=== PATIENT | female | born 1950 | race Caucasian/White ===

== ENCOUNTER 2018-11-24 09:43 | Day surgery (SDC) | payer MEDICARE ==
[~2018-11-24] VITALS: Ht 162.6 cm; Wt 107.4 kg
[~2018-11-24 09:43] MED LIST: ABAT250V; AMOCLA500 PO; BUDE6HFA INH; Celebrex50 MG PO; Diovan320 MG PO; INSULANPEN; INSULANPEN SC; Keflex500 MG; NOVOLOG FL100 UNIT/1 SC; Novolog100 UNIT/2; Percocet 5-3251 EACH PO; VITAMIN D50000 UNIT PO
--- NOTE | 2018-11-24 10:57 | NUR ---
11/24/18 1057 Aram Marte N 1 IV ATTEMPT RIGHT FA. VEIN BLEW. PT TOW. 2ND IV IN RIGHT HAND, SUCCESSFUL.
[2018-11-24 11:24] LABS: Albumin, Blood 3.4 g/dL (3.4-5.0); Albumin/Globulin Ratio 0.9 (0.8-1.8); Bilirubin, Total 0.5 mg/dL (0.1-1.0); Bun/Creatinine Ratio 11.3 (12.0-20.0); Calcium, Blood 8.9 mg/dL (8.5-10.1); Creatinine, Blood 2.74 mg/dL (0.40-1.00); Globulin, Blood 3.8 g/dL (2.2-4.0); Potassium, Blood 5.8 mmol/L (3.5-5.5); Total Protein, Blood 7.2 g/dL (6.4-8.2)
--- NOTE | 2018-11-24 12:38 | NUR ---
11/24/18 1238 Yelena Holly 8.5ML NORMAL SALINE USED TO ELEVATE TRANSVERSE COLON POLYP
== END 2018-11-24 13:40 | disposition home or self-care (01) ==
LOC: ORSCSDS 09:43
PROVIDERS: Internal Medicine Gastroenterology
PROC: 0DBL8ZX Excision of Transverse Colon, Via Natural or Artificial Opening Endoscopic, Diagnostic (ICD-10-PCS; principal; 2018-11-24 11:30)
PROC: 0DBH8ZX Excision of Cecum, Via Natural or Artificial Opening Endoscopic, Diagnostic (ICD-10-PCS; principal; 2018-11-24 11:30)
PROC: 0DBK8ZX Excision of Ascending Colon, Via Natural or Artificial Opening Endoscopic, Diagnostic (ICD-10-PCS; principal; 2018-11-24 11:30)
PROC: 0DBE8ZX Excision of Large Intestine, Via Natural or Artificial Opening Endoscopic, Diagnostic (ICD-10-PCS; principal; 2018-11-24 11:30)
DX: K92.1 Melena (principal); D12.0 Benign neoplasm of cecum; D12.2 Benign neoplasm of ascending colon; D12.3 Benign neoplasm of transverse colon; K63.5 Polyp of colon; K64.1 Second degree hemorrhoids; K64.4 Residual hemorrhoidal skin tags; K57.30 Diverticulosis of large intestine without perforation or abscess without bleeding; I10 Essential (primary) hypertension; E11.9 Type 2 diabetes mellitus without complications; G47.33 Obstructive sleep apnea (adult) (pediatric); E11.22 Type 2 diabetes mellitus with diabetic chronic kidney disease; I12.9 Hypertensive chronic kidney disease with stage 1 through stage 4 chronic kidney disease, or unspecified chronic kidney disease; N18.4 Chronic kidney disease, stage 4 (severe); E11.40 Type 2 diabetes mellitus with diabetic neuropathy, unspecified; F17.210 Nicotine dependence, cigarettes, uncomplicated; Z79.899 Other long term (current) drug therapy; Z79.82 Long term (current) use of aspirin; E66.01 Morbid (severe) obesity due to excess calories; Z68.41 Body mass index [BMI] 40.0-44.9, adult
CPT/HCPCS: 80053; 82947; 88305; J0290; J1580; J2704; J7030

== ENCOUNTER 2019-04-30 11:31 | Inpatient (IN) | payer MEDICARE ==
[~2019-04-30] VITALS: Ht 162.6 cm; Wt 108.1 kg
[~2019-04-30 11:31] MED LIST changes: -Diovan320 MG PO; -INSULANPEN SC; -VITAMIN D50000 UNIT PO
[2019-04-30 12:41] LABS: BASOPHILS ABSOLUTE AUTO 0.02 K/mm3 (0.00-0.23); BASOPHILS PERCENT AUTO 0 % (0-2); EOSINOPHILS ABSOLUTE AUTO 0.05 K/mm3 (0.00-0.68); EOSINOPHILS PERCENT AUTO 1 % (0-6); Hematocrit 45.2 % (33.0-51.0); Hemoglobin 14.4 g/dL (11.5-16.0); IMMATURE GRAN ABSOLUTE AUTO 0.03 K/mm3 (0.00-0.10); IMMATURE GRAN PERCENT AUTO 0 % (0-1); LYMPHOCYTES ABSOLUTE AUTO 0.86 K/mm3 (0.84-5.20); LYMPHOCYTES PERCENT AUTO 11 % (21-46); MONOCYTES ABSOLUTE AUTO 0.34 K/mm3 (0.16-1.47); MONOCYTES PERCENT AUTO 4 % (4-13); Mean Corpuscular HGB 27.4 pg (26.0-34.0); Mean Corpuscular HGB Conc 31.9 g/dL (31.5-36.5); Mean Corpuscular Volume 86 fL (80-100); NEUTROPHILS ABSOLUTE AUTO 6.55 K/mm3 (1.96-9.15); NEUTROPHILS PERCENT AUTO 83 % (41-73); Platelet Count 235 K/mm3 (150-400); RDW Coefficient Variation 14.3 % (11.7-14.2); RDW Standard Deviation 44.8 fL (35.1-46.3); Red Blood Cell Count 5.26 M/mm3 (3.80-5.20); White Blood Cell Count 7.85 K/mm3 (4.00-11.30)
[2019-04-30 12:51] LABS: Albumin, Blood 3.2 g/dL (3.4-5.0); Albumin/Globulin Ratio 0.8 (0.8-1.8); Bilirubin, Total 0.3 mg/dL (0.1-1.0); Bun/Creatinine Ratio 15.1 (12.0-20.0); Calcium, Blood 8.5 mg/dL (8.5-10.1); Creatinine, Blood 3.25 mg/dL (0.40-1.00); Globulin, Blood 4.1 g/dL (2.2-4.0); Total Protein, Blood 7.3 g/dL (6.4-8.2); Troponin I 0.031 ng/mL (0.000-0.040)
[2019-04-30] MEDS ORDERED: PRED20 PO (13:30)
[2019-04-30] MEDS ORDERED: XANAX0.25 MG PO (13:30)
[2019-04-30] MEDS ORDERED: INSULANPEN SC (14:03)
[2019-04-30] MEDS ORDERED: Diovan320 MG PO (14:03)
[2019-04-30] MEDS ORDERED: FIASP 100100 UNIT/2 SC (14:05)
[2019-04-30] MEDS ORDERED: ERGO50000 PO (14:06)
[2019-04-30] MEDS ORDERED: LORA.5 PO (16:22)
[2019-04-30] MEDS ORDERED: Prednisone10 MG PO (17:14)
[2019-04-30] MEDS ORDERED: ASPI325 PO (17:59)
--- NOTE | 2019-04-30 18:41 | NUR ---
SHE HAS BEEN ADMITTED. CBG DOWN TO 212. LATE DINNER JUST ARRIVED. SHE IS A LITTLE ANXIOUS RIGHT NOW BUT HASN'T BEEN SINCE ARRIVAL TO THE FLOOR. SHE WAS ANXIOUS IN THE E.R. CONSULTATION WAS CALLED TO . NO WORD FROM HER YET.TELE NSR. NO COMPLAINTS.
--- NOTE | 2019-04-30 18:43 | NUR ---
Echocardiogram completed.
--- NOTE | 2019-05-01 01:46 | NUR ---
CALL PLACED TO HOSPITALIST AT 2400 RE: NEED FOR REPEAT TROPONIN, DR. DAY STATES OK TO COMPLETE 3RD TROPONIN AT 0500. INFORMED MD OF PT REPORTS OF CHEST TIGHTNESS. RECEIVED ORDER FOR NITRO PASTE.
--- NOTE | 2019-05-01 04:45 | NUR ---
SHIFT SUMMARY: LABETALOL PRN ADMINISTERD X 1 FOR BP. PT REPORTS OF INCREASING CHEST AND L SHOULDER PAIN IMPROVED WITH IV MORPHINE. CHEST TIGHTNESS IMPROVED WITH NITRO PASTE. NO DYSPNEA. PT WAS ABLE TO SUCCESSFULLY STRAIGHT CATH INDEPENDENTLY AT HS. PERITONEAL PORT ACCESS SITE WITH DRESSING C/D/I. WILL CONT TO MONITOR.
[2019-05-01 05:59] LABS: Albumin, Blood 2.8 g/dL (3.4-5.0); Albumin/Globulin Ratio 0.8 (0.8-1.8); Bilirubin, Total 0.3 mg/dL (0.1-1.0); Calcium, Blood 8.3 mg/dL (8.5-10.1); Creatinine, Blood 3.35 mg/dL (0.40-1.00); Globulin, Blood 3.4 g/dL (2.2-4.0); Potassium, Blood 4.9 mmol/L (3.5-5.5); Total Protein, Blood 6.2 g/dL (6.4-8.2)
[2019-05-01 06:02] LABS: Troponin I 7.35 ng/mL (0.000-0.040)
[2019-05-01 09:00] LABS: CHOL/HDL RATIO 5.4; Cholesterol 238 mg/dL (50-200); HDL Cholesterol 44 mg/dL (>39); LDL/HDL RATIO 3.7; Low Density Lipoprotein Chol 161 mg/dL (0-110); Triglycerides 167 mg/dL (30-160); Very Low Density Lipoprot Chol 33 mg/dL (6-32)
--- NOTE | 2019-05-01 11:08 | NUR ---
SHE LEFT FOR BILLING AND QUALITY TECHNICIAN FOR AN ANGIOGRAM AT 1030 BY W/C. SHE DID NOT HAVE CP THIS MORNING BUT C/O HEAD AND NECK PAIN. SHE DID NOT WANT TO TAKE TYLENOL OR MORPHINE FOR IT. SHE IS UP WITH 1 ASSIST TO HELP HER WITH THE IV POLE. SHE SELF-CATHED AT 0815 FOR 900 MLS HAZY ALCON URINE. NO SOB. SHE DID ALSO FEEL A LITTLE WEAK AND DIZZY ONCE THIS MORNING WHEN SHE STOOD UP. ROUNDED AND LATER ROUNDED AND CONSENTED PATIENT FOR A HEART CATHETERIZATION. WE NOW KNOW SHE WILL GO TO PCU 4 AFTER HER ANGIO SO BELONGINGS HAVE JUST BEEN MOVED THERE. HER "FAMILY" BROUGHT IN HER PHONE CORDUROY CUTTING SUPERVISOR. IT IS PLUGGED IN IN PCU.
--- NOTE | 2019-05-01 11:54 | NUR ---
REPORT GIVEN TO CARINA SALAZAR RN. ANABELLA IS IN THE ENGINE ROOM HELPER.
--- NOTE | 2019-05-01 12:30 | NUR ---
ASSUMED PATIENT CARE.
--- NOTE | 2019-05-01 17:15 | NUR ---
2 ML OF AIR REMOVED FROM TR BAND, NO NEW DRAINAGE NOTED. PATIENT DENIES ANY PAIN AT SURGICAL SITE. WCTM.
--- NOTE | 2019-05-01 17:53 | NUR ---
1 ML REAPPLIED TO TR BAND DUE TO NEW BLOOD DISCHARGE FROM SURGICAL WOUND.
--- NOTE | 2019-05-01 19:12 | NUR ---
PATIENT CARE RELINQUISHED.
--- NOTE | 2019-05-01 19:13 | NUR ---
PATIENT ARRIVED FROM TECHNICAL OPERATIONS MANAGER AROUND 1230 TODAY, R. WRIST TR BAND PRESENT WITH NO DISCHARGE AND 11 ML AIR. PATIENT ALERT AND ORIENTED, DID NOT COMPLAIN OF PAIN AT INCISION SITE UNTIL THIS PM, NEW BRUISING NOTED PROXIMAL TO TR BAND. INITIAL AIR REMOVAL STARTED THIS AFTERNOON, 2 ML REMOVED BUT STARTED BLEEDING SO 1 ML REPLACED. THIS PM AT HAND-OFF REMOVED ADDITIONAL 2ML WITH NO SIGNS OF NEW BLEEDING. VITAL SIGNS STABLE. SON AT BEDSIDE.
--- NOTE | 2019-05-01 19:16 | NUR ---
PATIENT RETURNED TO PCU FROM CARDIAC SERVER ADMINISTRATOR FOR RECOVERY AFTER STENT PLACEMENT. PT AWAKE , ALERT AND WATCHING TV WITH VISITOR. CYCLER SET UP PER DR BAIN'S ORDER WITH NO INITIAL DRAIN DUE TO RX WITH NO LAST FILL AND DRY IN THE DAYTIME. ID ALARM OFF SO AFTER SHORT PULL, THERAPY WENT STRAIGHT TO FILL#1. NO DISCOMFORT REPORTED. EXIT SITE CARE DEFERRED PER PATIENT REQUEST. DRESSING CLEAR / INTACT. PATIENT STATES SHE WILL CHANGE HER OWN DRESSING IN THE AM. PCU STAFF AWARE OF OVERNIGHT CCPD THERAPY IN PROGRESS.
--- NOTE | 2019-05-01 21:00 | NUR ---
Assumed Care Pt presents sitting in bed with son at bedside, watching superbowl. Phil, RN from [facility] in room setting PD up. Pt alert and oriented, VSS. Conversing appropriately. R Radial TR site with 10cc of air remaining in band at time of shift change. Offgoing RN at bedside with this RN, R radial access site visualized by both RN's. Site with dried blood to cuff, bruise superior to cuff, site soft. Distal extremeities pale, pulse palp, sensation intact. cap refill<3seconds. Pt denies pain. See shift assessment for detailed systems assessment. Will continue to monitor.
--- NOTE | 2019-05-01 22:30 | NUR ---
R RADIAL ACCESS SITE FULLY RECOVERED AT 2230.
[2019-05-02 04:39] LABS: Albumin, Blood 2.9 g/dL (3.4-5.0); Anion Gap 8 mmol/L (6-16); Blood Urea Nitrogen 49 mg/dL (8-24); Bun/Creatinine Ratio 14.6 (12.0-20.0); CO2, Blood 20 mmol/L (21-32); Calcium, Blood 8.6 mg/dL (8.5-10.1); Chloride, Blood 108 mmol/L (98-108); Creatinine, Blood 3.35 mg/dL (0.40-1.00); Glomerular Filtration Rate 15 (60-); Glucose, Blood 203 mg/dL (70-99); Phosphorus, Blood 5.3 mg/dL (2.5-4.9); Potassium, Blood 5.1 mmol/L (3.5-5.5); Sodium, Blood 136 mmol/L (136-145)
--- NOTE | 2019-05-02 05:01 | NUR ---
Shift Summary Pt had PD this shift, self straight caths, and R Radial site recovered and site is dressed with tegaderm and arm board. Pt with VSS. Sleeping on and off throughout shift. Able to make needs known, remains alert and oriented but anxious and expresses frustration "I will leave this morning no matter what". Pt's concerns listened to and therapeutic communication expressed to pt. Pt is very involved in care. No acute concerns overnight. No events on tele. Will continue to monitor.
--- NOTE | 2019-05-02 07:27 | NUR ---
ASSUMED CARE: PT SITTING UP AT SIDE OF BED. STATES SHE WAS A LITTLE DIZZY AND NAUSEATED, DID NOT SLEEP WELL LAST NIGHT. WANTS TO BE DC'D TODAY. WILL DISCUSS WITH DR PRADO. RADIAL SITE WITH BRUISE NOTED ABOVE WHERE BAND WAS. NO FURTHER SIGNS OF HEMATOMA OR BLEEDING.
[2019-05-02] MEDS ORDERED: ASPI81CH PO (10:22)
[2019-05-02] MEDS ORDERED: ACET325 PO (10:26)
[2019-05-02] MEDS ORDERED: ATOR80 PO (10:27)
[2019-05-02] MEDS ORDERED: CLOP75 PO (10:29)
[2019-05-02] MEDS ORDERED: METO25 PO (10:31)
--- NOTE | 2019-05-02 11:53 | NUR ---
PT DC'D PER ORDERS. IV DC'D WNL. DISCUSSED NEED TO TAKE PLAVIX AND ASPIRIN AND TO NOT STOP UNLESS MD ADVISES. WARNED PT ABOUT BLEEDING RISK AND TO SEEK MEDICAL ASSIST IF SHE HITS HEAD OR NOTICES INCREASED BRUISING. PT DENIED FURTHER QUESTIONS OR CONCERNS. ESCORTED OUT VIA WHEEL CHAIR BY RN.
--- NOTE | 2019-05-02 14:37 | NUR ---
DIALYSIS-PD PT DISCONNECTED HERSELF. SITE CLEAR. SOLUTION CLEAR. NO COMPLAINTS. ID 1 ML ( LAST FILL 0 ML), 333 ML UF. PT BEING DISCHARGED TODAY.
== END 2019-05-02 11:36 | disposition home or self-care (01) | DRG 246 ==
LOC: ER 11:31 → MEDS 11:32 → PCU 05-01 12:15 → MEDS 05-01 12:16 → PCU 05-01 12:25
PROVIDERS: Emergency Medicine; Internal Medicine; Nurse Practitioner Acute Care; ADMIT Internal Medicine
PROC: 4A023N7 Measurement of Cardiac Sampling and Pressure, Left Heart, Percutaneous Approach (ICD-10-PCS; principal; 2019-05-01)
PROC: 027035Z Dilation of Coronary Artery, One Artery with Two Drug-eluting Intraluminal Devices, Percutaneous Approach (ICD-10-PCS; 2019-05-01)
PROC: B211YZZ Fluoroscopy of Multiple Coronary Arteries using Other Contrast (ICD-10-PCS; 2019-05-01)
PROC: 5A1D70Z Performance of Urinary Filtration, Intermittent, Less than 6 Hours Per Day (ICD-10-PCS; 2019-05-01)
DX: I21.4 Non-ST elevation (NSTEMI) myocardial infarction (principal); N18.6 End stage renal disease; I12.0 Hypertensive chronic kidney disease with stage 5 chronic kidney disease or end stage renal disease; Z99.2 Dependence on renal dialysis; E11.22 Type 2 diabetes mellitus with diabetic chronic kidney disease; Z79.4 Long term (current) use of insulin; Z79.82 Long term (current) use of aspirin; E78.5 Hyperlipidemia, unspecified
CPT/HCPCS: 36415; 51701; 71046; 76937; 80053; 80061; 80069; 82947; 83036; 83880; 84132; 84484; 85025; 85347; 85730; 93005; 93010; 93306; 93454; 96374; 96375; 96376; 99152; 99153; 99285-25; C1725; C1769; C1874; C1887; C1894; C9600; G0378; J1170; J1644; J2250; J2270; J3010; J7030; J7040; Q9967

== ENCOUNTER 2021-04-11 22:30 | Emergency (ER) | payer MEDICARE ==
[~2021-04-11] VITALS: Ht 162.6 cm; Wt 90.7 kg
[~2021-04-11 22:30] MED LIST changes: +ACET325 PO; +ASPI325 PO; +ASPI81CH PO; +ATOR80 PO; +CLOP75 PO; +Diovan320 MG PO; +ERGO50000 PO; +FIASP 100100 UNIT/2 SC; +INSULANPEN SC; +LORA.5 PO; +METO25 PO; +PRED20 PO; +Prednisone10 MG PO; +XANAX0.25 MG PO
[2021-04-11 22:56] LABS: BASOPHILS ABSOLUTE AUTO 0.04 K/mm3 (0.00-0.23); BASOPHILS PERCENT AUTO 0 % (0-2); EOSINOPHILS PERCENT AUTO 2 % (0-6); Hematocrit 35.2 % (33.0-51.0); Hemoglobin 11.2 g/dL (11.5-16.0); IMMATURE GRAN ABSOLUTE AUTO 0.08 K/mm3 (0.00-0.10); IMMATURE GRAN PERCENT AUTO 1 % (0-1); LYMPHOCYTES ABSOLUTE AUTO 1.05 K/mm3 (0.84-5.20); LYMPHOCYTES PERCENT AUTO 10 % (21-46); MONOCYTES ABSOLUTE AUTO 0.89 K/mm3 (0.16-1.47); MONOCYTES PERCENT AUTO 8 % (4-13); Mean Corpuscular HGB 26.9 pg (26.0-34.0); Mean Corpuscular HGB Conc 31.8 g/dL (31.5-36.5); Mean Corpuscular Volume 85 fL (80-100); Mean Platelet Volume 8.8 fL (9.1-12.4); NEUTROPHILS ABSOLUTE AUTO 8.59 K/mm3 (1.96-9.15); NEUTROPHILS PERCENT AUTO 79 % (41-73); Platelet Count 340 K/mm3 (150-400); RDW Coefficient Variation 13.9 % (11.7-14.2); RDW Standard Deviation 43.1 fL (35.1-46.3); Red Blood Cell Count 4.16 M/mm3 (3.80-5.20); White Blood Cell Count 10.85 K/mm3 (4.00-11.30)
[2021-04-11 23:26] LABS: Troponin I <0.015 ng/mL (0.000-0.040)
[2021-04-11 23:35] LABS: Anion Gap 15 mmol/L (6-16); Blood Urea Nitrogen 128 mg/dL (8-24); Bun/Creatinine Ratio 15.1 (12.0-20.0); CO2, Blood 21 mmol/L (21-32); Calcium, Blood 8.9 mg/dL (8.5-10.1); Chloride, Blood 100 mmol/L (98-108); Glomerular Filtration Rate 5 (60-); Glucose, Blood 270 mg/dL (70-99); Potassium, Blood 5.1 mmol/L (3.5-5.5); Sodium, Blood 136 mmol/L (136-145)
== END 2021-04-12 01:35 | disposition home or self-care (01) ==
LOC: ER 22:30
PROVIDERS: Student in an Organized Health Care Education/Training Program
DX: R07.9 Chest pain, unspecified (principal); I25.2 Old myocardial infarction; N18.9 Chronic kidney disease, unspecified; Z79.82 Long term (current) use of aspirin; Z79.899 Other long term (current) drug therapy; Z79.4 Long term (current) use of insulin
CPT/HCPCS: 36415; 71045; 80048; 84484; 85025; 99285-25; A9270